=== PATIENT | female | born 1960 | race Caucasian/White ===

== ENCOUNTER 2024-09-28 09:32 | Outpatient (CLI) | payer OTHER, SELFPAY ==
[2024-09-30 11:12] LABS: HPV Source Cervical; HPV, High Risk by TMA Not Detected
== END 2024-09-28 09:33 | disposition home or self-care (01) ==
PROVIDERS: Visit Provider Physician Assistant
DX: Z12.4 Encounter for screening for malignant neoplasm of cervix (principal); Z11.51 Encounter for screening for human papillomavirus (HPV)
CPT/HCPCS: 87624; 87625; 88141; 88142

== ENCOUNTER 2024-12-23 08:30 | Outpatient (CLI) | payer OTHER, SELFPAY ==
--- NOTE | 2024-12-23 08:45 | CRLHL7_ITS ---
For Patients: As a result of the Century Cures Act, medical imaging exams and procedure reports are released immediately into your electronic medical record. You may view this report before your referring provider. If you have questions, please contact your health care provider. INDICATION: BILATERAL SCREENING MAMMOGRAM, ASYMPTOMATIC 64 Y/O FEMALE COMPARISON: 05/02/23, 01/31/22, 01/15/21 TECHNIQUE: CC and MLO views were obtained. These mammographic images have been obtained using full-field digital technique. These mammographic images were interpreted with the benefit of computer aided detection and tomosynthesis. BREAST COMPOSITION: The breasts are heterogeneously dense, which may obscure small masses. FINDINGS: No suspicious findings. ASSESSMENT: BI-RADS 1 Negative RECOMMENDATION: Annual screening mammogram. A lay language report of this examination will be provided to the patient. Dictated by: Oscar Robertson MD @ 12/30/2024 13:00:04 (Electronically Signed)
== END 2024-12-23 08:31 | disposition home or self-care (01) ==
LOC: MAMMO 08:30
PROVIDERS: Visit Provider Physician Assistant
DX: Z12.31 Encounter for screening mammogram for malignant neoplasm of breast (principal); R92.333 Mammographic heterogeneous density, bilateral breasts
CPT/HCPCS: 77063; 77067